=== PATIENT | female | born 1950 | race Caucasian/White ===

== ENCOUNTER 2023-01-02 09:35 | Outpatient (CLI) | payer MEDICARE, BC ==
[2023-01-02 11:18] LABS: Hematocrit 39.3 % (34.9-44.5); Mean Corpuscular HGB CONC 33.1 g/dL (32.0-36.0); Mean Corpuscular Hemoglobin 31.7 pg (27.0-33.0); Mean Corpuscular Volume 95.9 fl (81.6-98.3); Mean Platelet Volume 11.7 fl (7.4-10.4); Platelet Count 332 10x3/uL (150-450); White Blood Cell (WBC) Count 11.1 10x3/uL (3.5-10.5)
[2023-01-02 11:24] LABS: Anion Gap 18 mmol/L (10-20); BUN (Urea Nitrogen) 20 mg/dL (9.8-20.1); Calc. Creatinine Clearance 0 mL/min (70-130); Calcium 9.9 mg/dL (7.8-10.44); Carbon Dioxide 23 mmol/L (23-31); Chloride 101 mmol/L (98-107); Estimated GFR 44; Glucose 105 mg/dL (83-110); Potassium 4.5 mmol/L (3.5-5.1); Sodium 137 mmol/L (136-145)
== END 2023-01-02 09:36 | disposition home or self-care (01) ==
LOC: LABBT 09:35
PROVIDERS: ATTEND Neurological Surgery
DX: Z01.818 Encounter for other preprocedural examination (principal); M48.062 Spinal stenosis, lumbar region with neurogenic claudication; M43.16 Spondylolisthesis, lumbar region
CPT/HCPCS: 80048; 85027; 93005; 93010

== ENCOUNTER 2023-01-05 05:30 | Day surgery (SDC) | payer MEDICARE, BC ==
[2023-01-02 10:42] VITALS: BMI 52.7
[2023-01-05] MEDS ORDERED: Thrombin 5000 UNITS/5 ML VIAL ONE (06:17)
[2023-01-05] MEDS ORDERED: Bupivacaine PF 0.5% 30 ML VIAL ONE (06:17)
[2023-01-05] MEDS ORDERED: EPINEPHrine 1 MG/ML AMP ONE (06:17)
[2023-01-05] MEDS ORDERED: Sodium Chloride 0.9% 100 ML ONE ×2 (06:35→10:54)
[2023-01-05] MEDS ORDERED: CEFAZOLIN 2 GM VIAL ONE ×2 (06:35→10:54)
[2023-01-05] MEDS ORDERED: Scopolamine 1.5 mg/72 hour Patch ONE (06:53)
[2023-01-05] MEDS ORDERED: Famotidine/PF 20 mg/2ml Vial ONE (06:53)
[2023-01-05] MEDS ORDERED: fentaNYL PF 100 MCG/2 ML SYRINGE ONE ×2 (06:54)
[2023-01-05] MEDS ORDERED: SUGAMMADEX SODIUM 200 MG/2 ML VIAL ONE (06:55)
[2023-01-05] MEDS ORDERED: Dexmedetomidine 200 MCG/2 ML VIAL ONE (06:55)
[2023-01-05] MEDS ORDERED: Ondansetron PF 4 MG/2 ML Vial ONE (07:00)
[2023-01-05] MEDS ORDERED: Dexamethasone 20 MG/5 ML VIAL ONE (07:00)
[2023-01-05] MEDS ORDERED: Rocuronium Bromide 10 MG/ML (10ML VIAL) ONE (07:00)
[2023-01-05] MEDS ORDERED: Lidocaine 1% PF 5 ML VIAL ONE (07:00)
[2023-01-05] MEDS ORDERED: PROPOFOL 200 MG/20 ML VIAL ONE (07:00)
[2023-01-05] MEDS ORDERED: Metoclopramide HCl 10 MG/2 ML VIAL ONE (07:00)
[2023-01-05] MEDS ORDERED: fentaNYL 50 mcg/mL 1 mL Vial ONE ×2 (08:52→09:08)
[2023-01-05] MEDS ORDERED: traMADol HCl 50 MG TAB ONE (09:21)
[2023-01-05] MEDS ORDERED: HYDROmorphone 0.5 MG/0.5 ML SYRINGE ONE (09:25)
== END 2023-01-05 11:40 | disposition home or self-care (01) ==
LOC: SDC 05:30
PROVIDERS: ATTEND Neurological Surgery
PROC: 01NB0ZZ Release Lumbar Nerve, Open Approach (ICD-10-PCS; principal; 2023-01-05)
PROC: 0SB20ZZ Excision of Lumbar Vertebral Disc, Open Approach (ICD-10-PCS; 2023-01-05)
DX: M43.16 Spondylolisthesis, lumbar region (principal); M48.062 Spinal stenosis, lumbar region with neurogenic claudication; M54.16 Radiculopathy, lumbar region; E78.5 Hyperlipidemia, unspecified; M19.90 Unspecified osteoarthritis, unspecified site; J45.909 Unspecified asthma, uncomplicated; E03.9 Hypothyroidism, unspecified; Z96.641 Presence of right artificial hip joint; Z96.653 Presence of artificial knee joint, bilateral; Z88.5 Allergy status to narcotic agent; Z88.1 Allergy status to other antibiotic agents; Z88.8 Allergy status to other drugs, medicaments and biological substances; Z79.890 Hormone replacement therapy; Z79.899 Other long term (current) drug therapy
CPT/HCPCS: 63047; J3010; C1713; J0171; J1100; J1170; J2405; J2704; J2765; J3490; S0020; S0028